=== PATIENT | female | born 1970 | race Caucasian/White ===

== ENCOUNTER → 2018-03-31 07:29 | Outpatient (CLI) | payer OTHER, SELFPAY ==
[2018-03-31 08:45] LABS: Alanine Aminotransferase 23 IU/L (9-52); Albumin 4.2 g/dL (3.5-5.0); Albumin Globulin Ratio 1.6 (1.0-2.8); Alkaline Phosphatase 51 U/L (38-126); Aspartate Aminotransferase 24 IU/L (14-36); BUN Creatinine Ratio 17.5 (6-22); Bilirubin Total 0.3 mg/dL (0.2-1.3); Blood Urea Nitrogen 14 mg/dL (7-17); Calcium 9.1 mg/dL (8.4-10.2); Carbon Dioxide 26 mmol/L (22-32); Chloride 105 mmol/L (98-107); Cholesterol 170 mg/dL (140-199); Estimated Glomerular Filt Rate > 60.0 mL/min (>60); Globulin 2.7 g/dL (1.7-4.1); Glucose 88 mg/dL (70-100); HDL Cholesterol 64 mg/dL (40-60); HEMOLYSIS < 15 (0-50); LDL Cholesterol Calculated 70 mg/dL (<100); Sodium 143 mmol/L (137-145); Total Protein 6.9 g/dL (6.3-8.2); Triglycerides 178 mg/dL (35-150)
== END ==
PROVIDERS: Family Provider Family Medicine; PCP Obstetrics & Gynecology; Visit Provider Obstetrics & Gynecology
DX: E78.5 Hyperlipidemia, unspecified (principal)
CPT/HCPCS: 36415; 80053; 80061

== ENCOUNTER → 2018-04-07 08:18 | Outpatient (CLI) | payer OTHER, SELFPAY ==
--- NOTE | 2018-04-07 | DI.MG.S_ITS ---
BILATERAL DIGITAL SCREENING MAMMOGRAM 3D/2D WITH CAD: 04/07/2018 CLINICAL: Routine screening. Comparison is made to exams dated: 03/01/2017 mammogram, 02/08/2016 mammogram, 01/05/2015 mammogram, and 12/27/2014 mammogram - [facility]. There are scattered fibroglandular elements in both breasts. Current study was also evaluated with a Computer Aided Detection (CAD) system. No significant masses, calcifications, or other findings are seen in either breast. There has been no significant interval change. IMPRESSION: NEGATIVE There is no mammographic evidence of malignancy. A 1 year screening mammogram is recommended. This exam was interpreted at Station ID: [id number]. NOTE: For mammograms, a report in lay terms will be sent to the patient. Approximately 15% of breast malignancies will not be visualized mammographically. In the management of a palpable breast mass, a negative mammogram must not discourage biopsy of a clinically suspicious lesion. Electronically Signed By: Jackie bustillos/yanet:04/07/2018 08:46:03 letter sent: Normal Exam ACR BI-RADS Category 1: Negative 3341F
== END ==
PROVIDERS: Family Provider Family Medicine; PCP Obstetrics & Gynecology; Visit Provider Obstetrics & Gynecology
DX: Z12.31 Encounter for screening mammogram for malignant neoplasm of breast (principal)
CPT/HCPCS: 77063; 77067

== ENCOUNTER → 2019-04-24 07:45 | Outpatient (CLI) | payer OTHER, SELFPAY ==
--- NOTE | 2019-04-24 | DI.MG.S_ITS ---
BILATERAL DIGITAL SCREENING MAMMOGRAM 3D/2D WITH CAD: 04/24/2019 CLINICAL: Routine screening. Comparison is made to exams dated: 04/07/2018 mammogram, 03/01/2017 mammogram, and 02/08/2016 mammogram - [facility]. The tissue of both breasts is predominantly fatty. Current study was also evaluated with a Computer Aided Detection (CAD) system. No significant masses, calcifications, or other findings are seen in either breast. There has been no significant interval change. IMPRESSION: NEGATIVE There is no mammographic evidence of malignancy. A 1 year screening mammogram is recommended. This exam was interpreted at Station ID: [id number]. NOTE: For mammograms, a report in lay terms will be sent to the patient. Approximately 15% of breast malignancies will not be visualized mammographically. In the management of a palpable breast mass, a negative mammogram must not discourage biopsy of a clinically suspicious lesion. Electronically Signed By: Laurence anderson/yanet:04/24/2019 11:20:09 letter sent: Normal Exam ACR BI-RADS Category 1: Negative 3341F
== END ==
PROVIDERS: Family Provider Family Medicine; PCP Obstetrics & Gynecology; Visit Provider Obstetrics & Gynecology
DX: Z12.31 Encounter for screening mammogram for malignant neoplasm of breast (principal)
CPT/HCPCS: 77063; 77067

== ENCOUNTER → 2020-04-20 15:44 | Outpatient (CLI) | payer OTHER, SELFPAY ==
[2020-04-20 16:54] LABS: COVID19 -Nasal RAPID Negative (Negative)
== END ==
PROVIDERS: Family Provider Family Medicine; PCP Obstetrics & Gynecology; Visit Provider Physician Assistant
DX: Z11.59 Encounter for screening for other viral diseases (principal)
CPT/HCPCS: 87635

== ENCOUNTER → 2020-04-22 14:08 | Day surgery (SDC) | payer OTHER, SELFPAY ==
[2020-04-22] VITALS (7 sets, daily range): BP systolic 148–162; BP diastolic 88–108; PULSE 59–90; RESP 10–19; TEMP 36.7–37.3; O2SAT 98–100; BMI 36.0
--- NOTE | 2020-04-22 | PATH_ITS ---
[facility] Accession Number: [id number] . 01 Material submitted: . sigmoid colon - SIGMOID COLON . 02 Diagnosis: Sigmoid Colon, Biopsy: Hyperplastic polyp. MRV 04/26/2020 0939 Local . 02 Electronically signed: . Jagdish Morataya MD, PhD, Pathologist NPI- [id number] . 01 Gross description: . SIGMOID COLON: Received in formalin is 1 fragment(s) of sellers, soft tissue measuring 0.6 x 0.3 x 0.1 cm submitted entirely in 1 cassette(s) /QBJ 04/23/2020 0755 Local . 02 Pathologist provided ICD-10: K63.5 . 02 CPT . 848109 Performed at: 01 [facility] [address] [id number] MD Vasquez Almanza MD Phone: [phone] Performed at: 02 [facility] [address] [place], [place] [id number] MD Radha Caal MD Phone: [phone]
--- NOTE | 2020-04-22 12:10 | P.HP_ITS ---
History of Present Illness History of Present Illness Date Patient Seen: 04/22/20 Chief complaint: SDC Narrative: 49 Years Old Female seen today for consideration of a screening colonoscopy. There have been no lower GI symptoms suggesting disease such as change in bowel habits, bleeding, abdominal pain or anemia. She does have a maternal uncle with a history of colon polyps, no first-degree relatives. No family history of colon cancer. Her daughter was diagnosed with ulcerative col itis at age 16. Overall health issues have been stable, including no major cardiac events for at least 6 weeks. Past Medical History: HYPERLIPIDEMIA HPV Past Surgical History: Reviewed history from 10/02/2014 and no changes required: Right ankle metal plate (1996) Family History: Father: Heart disease Mother: Heart attack Siblings: Daughter: ulcerative colitis Maternal uncle: colon polyps Social History: Reviewed history from 12/06/2017 and no changes required: Marital Status: Children: son Дмитрий Occupation: Household Members: Education: Alcohol drinks/day: 0 Patient History Medical History (Updated 04/07/18 @ 15:43 by Lauren Rodrigez) Abnormal Pap smear of cervix Surgical History (Updated 04/07/18 @ 15:41 by Lauren Rodrigez) History of ankle surgery History of third molar tooth extraction Family & Social History Family History (Updated 07/16/13 @ 00:00 by Fatimah Green MD) Mother Fibroids Tobacco & Substance use: Smoking Status Never smoker Meds Home Medications and Allergies Home Medications Medication Instructions Recorded Confirmed Type atorvastatin [Lipitor] 20 mg PO HS #0 03/12/17 04/22/20 History norgestrel 0.3 mg-ethinyl 1 tab PO Q DAY #3 pac 02/09/20 04/22/20 Rx estradiol 30 mcg tablet Allergies Allergy/AdvReac Type Severity Reaction Status Date / Time No Known Drug Allergies Allergy Verified 04/22/20 14:38 Review of Systems Review of Systems ROS: Yes All systems reviewed with the patient and are negative except as otherwise documented Exam Narrative Exam Narrative: GENERAL: Alert and oriented, appearing stated age and in no acute distress. HEENT: Head normocephalic/atraumatic. Pupils equal, round, and reactive to light and accomodation. Extraocular muscles intact. Tympanic membranes clear. Nasal mucosa moist, septum midline. Oral mucosa moist, no lesions. Neck soft and supple, no lymphadenopathy. LUNGS: Clear to ausculation bilaterally, no wheezes, rhonchi or rales. CV: Normal S1 and S2 with regular rate and rhythm, no audible murmurs, rubs or gallops. ABDOMEN: Soft, non-tender, non-distended, no organomegaly. Positive bowel sounds. EXTREMITIES: No clubbing, cyanosis, or edema. NEURO: Cranial nerves II through XII grossly intact, no focal deficits. PSYCH: Alert and oriented x 3. SKIN: No concerning lesions. Assessment & Plan Assessment & Plan narrative: 1. Family history of colon polyps 2. Screening for colon cancer Plan for colonoscopy. The nature and character of the procedure as well as anticipated results were discussed. The possibility of not completing the procedure was also discussed. Possible complications including aspiration pneumonia, bleeding, perforation and reaction to medications either for sedation or preparation and missed lesions were discussed. Questions were answered and proceeding to the colonoscopy was elected. Informed consent signed. I sincerely appreciate the referral allowing me to participate in this patient's care. Please contact me with any questions or concerns.
--- NOTE | 2020-04-22 12:12 | PM.OP.ENDO ---
Operative Date/Time/Diagnoses Date of procedure: 04/22/20 Procedure Notes SCOAP/Timeout: 3:13 p.m. Procedure in detail: ENDOSCOPIST: Milagros Orozco MD Sedation RN: Janeth Mendez RN Sedation start time: 3:14 p.m. Sedation end time: 3:58 p.m. PROCEDURE: Colonoscopy with biopsy INDICATIONS: 1. Family history of colon polyps 2. Screening for colon cancer MEDICATION: Levsin 0.125 mg sublingual, incremental doses of Versed and fentanyl until appropriate level sedation achieved. ASA CLASS: 2 CECAL WITHDRAWAL TIME: 12 minutes COMPLICATIONS: None. EXTENT OF PROCEDURE: Cecum. QUALITY OF PREP: Good with portions of liquid stool. PROCEDURE: Prior to insertion of the colonoscope, a digital rectal examination was accomplished with circumferential palpation of the distal rectal mucosa without significant findings being noted. The high-definition colonoscope was passed into the rectum in the usual fashion and advanced over to the cecum without difficulty. The ileocecal valve, appendiceal stoma, and medial wall all could be inspected and no abnormalities were seen. ASCENDING COLON: As the colonoscope was withdrawn, care was taken to expose and inspect the haustral folds and no abnormalities were seen. HEPATIC FLEXURE: Normal, no polyps, diverticula or other abnormalities. TRANSVERSE COLON: Normal, no polyps, diverticula or other abnormalities. DESCENDING COLON: Normal, no polyps, diverticula or other abnormalities. SIGMOID COLON: A 2 mm polyp was seen and removed with cold biopsy forceps. Otherwise, no diverticula or other abnormalities. RECTUM: Normal. J maneuver was produced. There was no significant perianal disease. The J maneuver was broken. The remainder of the rectum was inspected and there was no external hemorrhoid disease. The scope was withdrawn. IMPRESSION: 1. Sigmoid polyp x1, 2 mm, removed with cold biopsy forceps PLAN: 1. Follow-up in clinic status post pathology results. The possibility of a missed lesion including a malignancy has been discussed with the patient previously. Potential alarm symptoms have been discussed and should be reported immediately.
[2020-04-22] MEDS: HYOSCYAMINE 0.125 MG TABLET PO (14:49)
[2020-04-22] MEDS: LACTATED RINGERS 1,000 ML 200 ML IV (14:50)
[2020-04-22] MEDS: fentaNYL 250 MCG/5 ML INJ IV (15:41)
[2020-04-22] MEDS: MIDAZOLAM 5 MG/5 ML VIAL IV (15:41)
== END | disposition home or self-care (01) ==
PROVIDERS: Family Provider Family Medicine; PCP Student in an Organized Health Care Education/Training Program; Referring Provider Student in an Organized Health Care Education/Training Program; Visit Provider Student in an Organized Health Care Education/Training Program
PROC: 0DJD8ZZ Inspection of Lower Intestinal Tract, Via Natural or Artificial Opening Endoscopic (ICD-10-PCS; CPT 45378; principal; 2020-04-22 15:15)
DX: Z12.11 Encounter for screening for malignant neoplasm of colon (principal); Z83.71 Family history of colonic polyps; K63.5 Polyp of colon
CPT/HCPCS: 45380; J2250; J3010

== ENCOUNTER → 2020-04-25 08:22 | Outpatient (CLI) | payer OTHER, SELFPAY ==
--- NOTE | 2020-04-25 | DI.MG.S_ITS ---
BILATERAL DIGITAL SCREENING MAMMOGRAM 3D/2D WITH CAD: 04/25/2020 CLINICAL: Routine screening. Comparison is made to exams dated: 04/24/2019 mammogram, 04/07/2018 mammogram, and 03/01/2017 mammogram - [facility]. The tissue of both breasts is predominantly fatty. Current study was also evaluated with a Computer Aided Detection (CAD) system. No significant masses, calcifications, or other findings are seen in either breast. There has been no significant interval change. IMPRESSION: NEGATIVE There is no mammographic evidence of malignancy. A 1 year screening mammogram is recommended. This exam was interpreted at Station ID: [id number]. NOTE: For mammograms, a report in lay terms will be sent to the patient. Approximately 15% of breast malignancies will not be visualized mammographically. In the management of a palpable breast mass, a negative mammogram must not discourage biopsy of a clinically suspicious lesion. Electronically Signed By: Phani altamirano/yanet:04/25/2020 09:17:49 letter sent: Normal Exam ACR BI-RADS Category 1: Negative 3341F
== END ==
PROVIDERS: Family Provider Family Medicine; PCP Student in an Organized Health Care Education/Training Program; Referring Provider Obstetrics & Gynecology; Visit Provider Obstetrics & Gynecology
DX: Z12.31 Encounter for screening mammogram for malignant neoplasm of breast (principal)
CPT/HCPCS: 77063; 77067

== ENCOUNTER → 2021-02-21 09:03 | Outpatient (CLI) | payer OTHER, SELFPAY ==
--- NOTE | 2021-02-21 | DI.RAD.S_ITS ---
PROCEDURE: XR KNEE RT 3V INDICATIONS: PAIN TECHNIQUE: 3 views of the knee were acquired. COMPARISON: None. FINDINGS: Bones: No fractures or dislocations. No suspicious bony lesions. Mgrd-vn-xnkenjbo medial patellofemoral degenerative narrowing. Periarticular osteophytes are present without erosions. Lateral patellar subluxation is present. Soft tissues: Minimal joint effusion. No suspicious soft tissue calcifications. IMPRESSION: No visualized acute fracture or dislocation. However, if clinical concern and/or pain persist, short interval imaging followup in 7-10 days is recommended, as occult injury cannot be definitively excluded. Dictated by: Marietta Valdez M.D. on 02/21/2021 at 10:34 Approved by: Marietta Valdez M.D. on 02/21/2021 at 11:11
--- NOTE | 2021-02-21 | DI.RAD.S_ITS ---
PROCEDURE: XR ANKLE RT MIN 3V INDICATIONS: PAIN TECHNIQUE: 3 views of the ankle were acquired. COMPARISON: [facility], , ANKLE 3 VIEWS LEFT, 07/19/2007, 15:29. FINDINGS: Bones: ORIF of the distal fibula is present. Hardware is intact without evidence of hardware fracture or periprosthetic lucency to suggest loosening. There is good anatomic alignment. Remaining osseous structures are intact. Soft tissues: No tibiotalar joint effusion. Achilles tendon appears normal. IMPRESSION: Distal fibular ORIF as above. Dictated by: Marietta Valdez M.D. on 02/21/2021 at 11:12 Approved by: Marietta Valdez M.D. on 02/21/2021 at 11:14
== END ==
PROVIDERS: PCP Student in an Organized Health Care Education/Training Program; Referring Provider Student in an Organized Health Care Education/Training Program; Visit Provider Student in an Organized Health Care Education/Training Program
DX: M25.561 Pain in right knee (principal); M25.571 Pain in right ankle and joints of right foot
CPT/HCPCS: 73562; 73610

== ENCOUNTER → 2021-05-01 08:25 | Outpatient (CLI) | payer OTHER, SELFPAY ==
--- NOTE | 2021-05-01 | DI.MG.S_ITS ---
BILATERAL DIGITAL SCREENING MAMMOGRAM 3D/2D WITH CAD: 05/01/2021 CLINICAL: Routine screening. Comparison is made to exams dated: 04/25/2020 mammogram, 04/24/2019 mammogram, and 04/07/2018 mammogram - [facility]. There are scattered fibroglandular elements in both breasts. Current study was also evaluated with a Computer Aided Detection (CAD) system. No significant masses, calcifications, or other findings are seen in either breast. There has been no significant interval change. IMPRESSION: NEGATIVE There is no mammographic evidence of malignancy. A 1 year screening mammogram is recommended. This exam was interpreted at Station ID: [id number]. NOTE: For mammograms, a report in lay terms will be sent to the patient. Approximately 15% of breast malignancies will not be visualized mammographically. In the management of a palpable breast mass, a negative mammogram must not discourage biopsy of a clinically suspicious lesion. Electronically Signed By: Vasquez moreira/yanet:05/01/2021 09:10:28 copy to: JOSE HI letter sent: Normal Exam ACR BI-RADS Category 1: Negative 3341F
== END ==
PROVIDERS: PCP Student in an Organized Health Care Education/Training Program; Referring Provider Student in an Organized Health Care Education/Training Program; Visit Provider Obstetrics & Gynecology
DX: Z12.31 Encounter for screening mammogram for malignant neoplasm of breast (principal)
CPT/HCPCS: 77063; 77067

== ENCOUNTER → 2021-10-05 15:42 | Outpatient (CLI) | payer OTHER, SELFPAY ==
[2021-10-05 17:08] LABS: Follicle Stimulating Hormone 65.9 mIU/mL
== END ==
PROVIDERS: PCP Student in an Organized Health Care Education/Training Program; Referring Provider Obstetrics & Gynecology; Visit Provider Obstetrics & Gynecology
DX: N95.1 Menopausal and female climacteric states (principal)
CPT/HCPCS: 36415; 83001

== ENCOUNTER → 2022-05-08 08:33 | Outpatient (CLI) | payer OTHER, SELFPAY ==
--- NOTE | 2022-05-08 | DI.MG.S_ITS ---
BILATERAL DIGITAL SCREENING MAMMOGRAM 3D/2D WITH CAD: 05/08/2022 CLINICAL: Routine screening. Comparison is made to exams dated: 05/01/2021 mammogram, 04/25/2020 mammogram, 04/24/2019 mammogram, and 04/07/2018 mammogram - . There are scattered areas of fibroglandular density in both breasts (category b / 25%-50% glandular tissue). Current study was also evaluated with a Computer Aided Detection (CAD) system. No significant masses, calcifications, or other findings are seen in either breast. There has been no significant interval change. IMPRESSION: NEGATIVE There is no mammographic evidence of malignancy. A 1 year screening mammogram is recommended. Based on the Tyrer Cuzick model (a risk assessment model) the patient's lifetime risk is 6.3% and her 10 year risk is 1.7%. According to the ACR, ACS, and NCCN guidelines, an annual breast MRI exam along with mammogram is recommended if the patient's lifetime risk is 20% or greater. This exam was interpreted at Station ID: [id number]. NOTE: For mammograms, a report in lay terms will be sent to the patient. Approximately 15% of breast malignancies will not be visualized mammographically. In the management of a palpable breast mass, a negative mammogram must not discourage biopsy of a clinically suspicious lesion. Electronically Signed By: Ammon lindsay/yanet:05/08/2022 10:47:09 copy to: JOSE HI letter sent: Normal Exam ACR BI-RADS Category 1: Negative 3341F
== END ==
PROVIDERS: PCP Family Medicine; Referring Provider Obstetrics & Gynecology; Visit Provider Obstetrics & Gynecology
DX: Z12.31 Encounter for screening mammogram for malignant neoplasm of breast (principal)
CPT/HCPCS: 77063; 77067

== ENCOUNTER → 2022-06-07 16:40 | Outpatient (CLI) | payer OTHER, SELFPAY ==
--- NOTE | 2022-06-07 | DI.MRI.S_ITS ---
PROCEDURE: MR KNEE RT WO CON INDICATIONS: loose body in knee, right knee TECHNIQUE: Noncontrast sagittal PD fast spin echo and T2 fast spin echo with fat saturation, sagittal 3-D FLASH with fat saturation; coronal T1 spin echo and PD fast spin echo with fat saturation, and axial PD fast spin echo with fat saturation through the knee. COMPARISON: [facility], CR, XR KNEE RT 3V, 02/21/2021, 9:07. FINDINGS: Image quality: Excellent. Menisci: The medial and lateral menisci demonstrate normal morphology and internal signal. The meniscal root ligaments appear intact. Cruciate ligaments: The anterior and posterior cruciate ligaments appear intact. Medial structures: The medial collateral ligament appears mildly thickened at its femoral insertion.. The posterior oblique ligament, semimembranosus tendon insertions, oblique popliteal ligament, and meniscocapsular junction appear intact. Visualized portions of the pes anserinus tendons appear normal. No abnormal bursal fluid. Lateral structures: Proximal lateral collateral ligament sprain is seen. The long and short heads of the biceps femoris tendon appear intact. The popliteus tendon appears normal; the popliteofibular ligament appears intact. Iliotibial band appears normal. Anterior structures: The quadriceps and patellar tendons appear intact. Slight lateral subluxation of patella is seen. No femoral trochlear dysplasia or ventral trochlear prominence. No edema in the infrapatellar fat pad. Bones and cartilage: Qldd-ms-kocisryz tricompartmental osteoarthritis and chondromalacia is noted most notably involving lateral portion of patellofemoral compartment. No acute fracture or dislocation. Mild edema and subcortical cystic areas are seen involving posterior and lateral aspect of patella and anterolateral periphery of lateral femoral condyle likely represent changes related to osteoarthritis. Joint space: There is small to moderate joint effusion. Loose body in lateral aspect of patellofemoral compartment is seen and measures 1.5 x 0.5 x 1.7 cm in size series 6, image 13 and series 11 image 12. There is a tiny Khan's cyst. Normal appearing synovial plicae are incidentally noted. IMPRESSION: 1. 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 No acute fracture or dislocation. 2. Small to moderate joint effusion with loose body seen in lateral aspect of patellofemoral compartment as above. 3. Cruciate ligaments are intact. Low-grade MCL and LCL sprain near their femoral insertions. 4. No evidence of focal meniscal tear. Dictated by: Mata Frias M.D. on 06/08/2022 at 9:45 Approved by: Mata Frias M.D. on 06/08/2022 at 9:56
== END ==
PROVIDERS: PCP Family Medicine; Referring Provider Orthopaedic Surgery; Visit Provider Orthopaedic Surgery
DX: S83.411A Sprain of medial collateral ligament of right knee, initial encounter (principal); S83.421A Sprain of lateral collateral ligament of right knee, initial encounter; M23.41 Loose body in knee, right knee; M17.11 Unilateral primary osteoarthritis, right knee; M22.41 Chondromalacia patellae, right knee; M25.461 Effusion, right knee
CPT/HCPCS: 73721

== ENCOUNTER → 2023-05-29 16:14 | Outpatient (CLI) | payer OTHER, SELFPAY ==
--- NOTE | 2023-05-29 16:15 | DI.MG.S_ITS ---
BILATERAL DIGITAL SCREENING MAMMOGRAM 3D/2D WITH CAD: 05/29/2023 CLINICAL: Routine screening. Comparison is made to exams dated: 05/08/2022 mammogram, 05/01/2021 mammogram, 04/25/2020 mammogram, and 04/24/2019 mammogram - [facility]. There are scattered areas of fibroglandular density in both breasts (category b / 25%-50% glandular tissue). Current study was also evaluated with a Computer Aided Detection (CAD) system. No significant masses, calcifications, or other findings are seen in either breast. There has been no significant interval change. IMPRESSION: NEGATIVE There is no mammographic evidence of malignancy. A 1 year screening mammogram is recommended. Based on the Tyrer Cuzick model (a risk assessment model) the patient's lifetime risk is 6.4% and her 10 year risk is 1.8%. According to the ACR, ACS, and NCCN guidelines, an annual breast MRI exam along with mammogram is recommended if the patient's lifetime risk is 20% or greater. This exam was interpreted at Station ID: [id number]. NOTE: For mammograms, a report in lay terms will be sent to the patient. Approximately 15% of breast malignancies will not be visualized mammographically. In the management of a palpable breast mass, a negative mammogram must not discourage biopsy of a clinically suspicious lesion. Electronically Signed By: Ammon lindsay/yanet:05/30/2023 13:46:48 copy to: JOSE HI letter sent: Normal Exam ACR BI-RADS Category 1: Negative 3341F
== END ==
PROVIDERS: PCP Family Medicine; Referring Provider Family Medicine; Visit Provider Family Medicine
DX: Z12.31 Encounter for screening mammogram for malignant neoplasm of breast (principal)
CPT/HCPCS: 77063; 77067

== ENCOUNTER → 2024-06-10 08:02 | Outpatient (CLI) | payer OTHER, SELFPAY ==
--- NOTE | 2024-06-10 08:03 | DI.MG.S_ITS ---
BILATERAL DIGITAL SCREENING MAMMOGRAM 3D/2D WITH CAD: 06/10/2024 CLINICAL: Routine screening. Comparison is made to exams dated: 05/29/2023 mammogram, 05/08/2022 mammogram, 05/01/2021 mammogram, 04/25/2020 mammogram, and 04/24/2019 mammogram - [facility]. There are scattered areas of fibroglandular density (category b / 25%-50% glandular tissue). Current study was also evaluated with a Computer Aided Detection (CAD) system. No significant masses, calcifications, or other findings are seen in either breast. There has been no significant interval change. IMPRESSION: NEGATIVE There is no mammographic evidence of malignancy. A 1 year screening mammogram is recommended. Based on the Tyrer Cuzick model (a risk assessment model) the patient's lifetime risk is 6.0% and her 10 year risk is 1.8%. According to the ACR, ACS, and NCCN guidelines, an annual breast MRI exam along with mammogram is recommended if the patient's lifetime risk is 20% or greater. This exam was interpreted at Station ID: [id number]. NOTE: For mammograms, a report in lay terms will be sent to the patient. Approximately 15% of breast malignancies will not be visualized mammographically. In the management of a palpable breast mass, a negative mammogram must not discourage biopsy of a clinically suspicious lesion. Electronically Signed By: Domitila Mercado M.D., Ph.D. amalia/yanet:06/10/2024 16:36:46 copy to: JOSE HI letter sent: Normal Exam ACR BI-RADS Category 1: Negative
== END ==
PROVIDERS: PCP Family Medicine; Referring Provider Family Medicine; Visit Provider Family Medicine
DX: Z12.31 Encounter for screening mammogram for malignant neoplasm of breast (principal)
CPT/HCPCS: 77063; 77067